=== PATIENT | female | born 1995 | race American Indian/Alaskan Native ===

== ENCOUNTER 2018-04-17 21:07 | Emergency (ER) | payer OTHER ==
[2018-04-17 22:23] VITALS: BP 118/88
[2018-04-18 00:06] LABS: Bacteria,Urine 1+ /HPF (Negative); Bilirubin,Urine NEG (Negative); Blood,Urine NEG (Negative); Color,Urine Yellow (Yellow); Mucus,Urine FEW /HPF
[2018-04-18 00:07] LABS: HCG Qualitative,Urine Negative (Negative)
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
[2018-04-18] MEDS ORDERED: TYLENOL PO ONE (03:08)
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
== END 2018-04-18 03:57 | disposition home or self-care (01) ==
LOC: ED 21:07
DX: M54.5 Low back pain (principal); M25.531 Pain in right wrist; M79.604 Pain in right leg; V43.02XA Car driver injured in collision with other type car in nontraffic accident, initial encounter; Y93.89 Activity, other specified; Y99.8 Other external cause status; Y92.488 Other paved roadways as the place of occurrence of the external cause
CPT/HCPCS: 72125; 72131; 81001; 81025